=== PATIENT | female | born 1955 | race Caucasian/White ===

== ENCOUNTER 2024-12-05 10:32 | Inpatient (IN) | payer BC, MEDICARE ==
[~2024-12-05] VITALS: Ht 170.2 cm; Wt 120.2 kg
[~2024-12-05 10:32] MED LIST: APIX5TAB MT; ASPI-1160 PO; ATOR20TA MT; ATOR20TA PO; DIGO-28 PO; LJ2 PO; LOSA25TA26 PO; METO25TA6 PO
[2024-12-05 11:43] LABS: BASOPHILS % 0.4 % (0.0-2.0); DIFFERENTIAL COMMENT 0; EOSINOPHILS % 1.1 % (0.0-5.0); HEMATOCRIT. 42.8 % (36.0-48.0); HEMOGLOBIN. 13.7 g/dL (12.0-16.0); MEAN CORPUSCULAR HEMOGLOBIN 25.4 pg (28.0-32.0); MEAN CORPUSCULAR VOLUME 79.3 fL (81.0-99.0); MEAN PLATELET VOLUME 8.8 fl (7.4-10.4); MONOCYTES % 7.5 % (2.0-8.0); PLATELET 233 x1000/uL (130-400); RED BLOOD CELL COUNT 5.39 mill/uL (4.2-5.4); RED CELL DISTRIBUTION WIDTH 15.9 % (11.6-14.6); WHITE BLOOD COUNT 6.9 x1000/uL (4.5-11.0)
[2024-12-05 11:52] LABS: CHLORIDE 102 mEq/L (98-107); POTASSIUM 4.1 mEq/L (3.5-5.1); SODIUM 136 mEq/L (136-145)
[2024-12-05 11:53] LABS: CALCIUM 9.7 mg/dL (8.7-10.4); CARBON DIOXIDE 25 mEq/L (21-32)
[2024-12-05 11:58] LABS: GLUCOSE 98 mg/dL (70-105); UREA NITROGEN BLOOD 16 mg/dL (9-23)
[2024-12-05 12:09] LABS: TROPONIN I HIGH SENSITIVITY 161 ng/L (3.0-34)
[2024-12-05] MEDS ORDERED: HYDROCODONE/ACETAMINOPHEN 5/325MG TABLET PO PRN (14:15)
[2024-12-05] MEDS ORDERED: ONDANSETRON HCL 4MG/2ML INJ IV PRN (14:15)
[2024-12-05] MEDS ORDERED: ACETAMINOPHEN 325MG TABLET PO PRN (14:15)
[2024-12-05] MEDS ORDERED: IPRATROPIUM/ALBUTEROL 0.5-3(2.5)MG/3ML NEB HHN PRN (14:15)
[2024-12-05] MEDS ORDERED: NALOXONE HCL 0.4MG/ML VIAL IV PRN (14:30)
[2024-12-05] MEDS: FUROSEMIDE 40MG/4ML VIAL IVP SCH (18:06)
[2024-12-05] MEDS: APIXABAN 5 MG TABLET PO SCH (18:56)
[2024-12-05 22:00] VITALS: BP 143/82; PULSE 75; RESP 19; TEMP 36.5292
[2024-12-06] VITALS: BP 143/82; PULSE 75; RESP 19; TEMP 36.50292; O2SAT 96
[2024-12-06 00:06] LABS: CREATINE KINASE MB FRACTION 0.8 ng/mL (0.5-3.6)
[2024-12-06 04:00] VITALS: BP 132/74; PULSE 59; RESP 20; TEMP 36.50292; O2SAT 100
[2024-12-06 07:51] LABS: BASOPHILS % 0.6 % (0.0-2.0); DIFFERENTIAL COMMENT 0; EOSINOPHILS % 2.9 % (0.0-5.0); HEMATOCRIT. 38.8 % (36.0-48.0); HEMOGLOBIN. 12.6 g/dL (12.0-16.0); LYMPHOCYTES % 33.7 % (20.0-50.0); MEAN CORPUSCULAR HEMOGLOBIN 25.6 pg (28.0-32.0); MEAN CORPUSCULAR HGB CONC 32.6 g/dL (31.0-37.0); MEAN CORPUSCULAR VOLUME 78.8 fL (81.0-99.0); MONOCYTES % 7.8 % (2.0-8.0); PLATELET 169 x1000/uL (130-400); RED BLOOD CELL COUNT 4.93 mill/uL (4.2-5.4); WHITE BLOOD COUNT 5.2 x1000/uL (4.5-11.0)
[2024-12-06 08:00] VITALS: BP 134/84; PULSE 96; RESP 18; TEMP 36.50292; O2SAT 97
[2024-12-06 08:12] LABS: CALCIUM 9.2 mg/dL (8.7-10.4); CARBON DIOXIDE 26 mEq/L (21-32); CHLORIDE 104 mEq/L (98-107); POTASSIUM 3.7 mEq/L (3.5-5.1); SODIUM 140 mEq/L (136-145)
[2024-12-06 08:13] LABS: CREATINE KINASE MB FRACTION 0.9 ng/mL (0.5-3.6)
[2024-12-06 08:18] LABS: CREATININE 0.9 mg/dL (0.6-1.0); GLUCOSE 95 mg/dL (70-105); UREA NITROGEN BLOOD 15 mg/dL (9-23)
[2024-12-06 08:19] LABS: CREATINE KINASE 38 IU/L (34-145)
[2024-12-06 08:52] LABS: TROPONIN I HIGH SENSITIVITY 160 ng/L (3.0-34)
[2024-12-06] MEDS: MAGNESIUM 2 G PREMIX 50 ML IV NR (10:19)
[2024-12-06 12:00] VITALS: BP 128/81; PULSE 97; RESP 18; TEMP 36.61404; O2SAT 98
[2024-12-06 16:00] VITALS: BP 126/80; PULSE 86; RESP 18; TEMP 36.55848; O2SAT 98
[2024-12-06] MEDS: DIGOXIN 125MCG TABLET PO SCH (19:40)
[2024-12-06 20:09] VITALS: BP 131/102; PULSE 72; RESP 17; TEMP 36.55848; O2SAT 96
[2024-12-06] MEDS: METOPROLOL TARTRATE 25MG TABLET PO SCH (22:32)
[2024-12-06] MEDS: ATORVASTATIN CALCIUM 20MG TABLET PO SCH (22:32)
[2024-12-07 00:06] VITALS: BP 138/88; PULSE 105; RESP 17; TEMP 36.50292; O2SAT 96
[2024-12-07 04:09] VITALS: BP 100/76; PULSE 103; RESP 18; TEMP 36.44736; O2SAT 98
[2024-12-07 08:00] VITALS: BP 135/96; PULSE 96; RESP 18; TEMP 36.50292; O2SAT 97
[2024-12-07] MEDS: ASPIRIN 81MG TABLET PO SCH (08:18)
[2024-12-07 12:00] VITALS: BP 131/89; PULSE 98; RESP 18; TEMP 36.61404; O2SAT 98
[2024-12-07 15:20] LABS: *AMPHETAMINES SCREEN URINE NEGATIVE (NEGATIVE); *BARBITURATES SCREEN URINE NEGATIVE (NEGATIVE); *BENZODIAZEPINES SCREEN URINE NEGATIVE (NEGATIVE); *COCAINE SCREEN URINE PRESUMPTIVE POSITIVE (NEGATIVE); CANNABINOID URINE SCREEN NEGATIVE (NEGATIVE); ECSTASY MDMA SCREEN URINE NEGATIVE (NEGATIVE); METHADONE URINE SCREEN NEGATIVE (NEGATIVE); OPIATES URINE SCREEN NEGATIVE (NEGATIVE); PHENCYCLIDINE URINE SCREEN NEGATIVE (NEGATIVE)
[2024-12-07 16:00] VITALS: BP 128/83; PULSE 93; RESP 18; TEMP 36.55848; O2SAT 98
[2024-12-07 20:04] VITALS: BP 123/90; PULSE 95; RESP 18; TEMP 36.00288; O2SAT 95
[2024-12-08 00:07] VITALS: BP 126/78; PULSE 103; RESP 17; TEMP 36.22512; O2SAT 93
[2024-12-08 04:04] VITALS: BP 132/105; PULSE 105; RESP 17; TEMP 36.3918; O2SAT 96
[2024-12-08 08:00] VITALS: BP 140/90; PULSE 85; RESP 18; TEMP 36.33624; O2SAT 98
[2024-12-08 12:00] VITALS: BP 136/96; PULSE 106; RESP 18; TEMP 36.50292; O2SAT 96
[2024-12-08 16:00] VITALS: BP 118/83; PULSE 66; RESP 18; TEMP 36.61404; O2SAT 97
[2024-12-08 20:02] VITALS: BP 132/99; PULSE 74; RESP 18; TEMP 36.00288; O2SAT 95
[2024-12-09] VITALS (7 sets, daily range): BP systolic 101–141; BP diastolic 56–105; PULSE 72–118; RESP 17–20; TEMP 36.114–36.55848; O2SAT 93–98
[2024-12-10] VITALS: BP 133/68; PULSE 76; RESP 18; TEMP 36.22512; O2SAT 97
[2024-12-10 04:00] VITALS: BP 122/60; PULSE 82; RESP 18; TEMP 36.114; O2SAT 98
[2024-12-10 08:00] VITALS: BP 131/77; PULSE 72; RESP 18; TEMP 36.61404; O2SAT 100
[2024-12-10 12:00] VITALS: BP 138/85; PULSE 101; RESP 18; TEMP 36.6696; O2SAT 100
[2024-12-10 16:00] VITALS: BP 128/78; PULSE 80; RESP 18; TEMP 36.55848; O2SAT 100
[2024-12-10 19:18] VITALS: BP 125/78; PULSE 85; TEMP 97.8; O2SAT 100
== END 2024-12-10 19:30 | disposition home or self-care (01) | DRG 291 ==
LOC: ER 10:32 → 8WST 13:29 → EDBEDREQTM 13:33 → EDBEDREQ 13:33
PROVIDERS: ADMIT Internal Medicine; ATTEND Internal Medicine
DX: I11.0 Hypertensive heart disease with heart failure (principal); I50.23 Acute on chronic systolic (congestive) heart failure; I48.19 Other persistent atrial fibrillation; E78.00 Pure hypercholesterolemia, unspecified; F14.90 Cocaine use, unspecified, uncomplicated; Z91.148 Patient's other noncompliance with medication regimen for other reason
CPT/HCPCS: 36415; 71045; 80048; 80162; 80305; 82550; 82553; 83880; 84484; 85025; 93005; 93306; 97162; 99285; A4606; A4663; J1940; J3475